=== PATIENT | male | born 1970 | race Caucasian/White ===

== ENCOUNTER 2021-06-28 10:06 | Outpatient (REF) | payer OTHER, SELFPAY | END 2021-06-28 10:07 | disposition home or self-care (01) | LOC: HO.BBR 10:06 | PROVIDERS: PCP Internal Medicine; Visit Provider Internal Medicine | DX: E83.111 Hemochromatosis due to repeated red blood cell transfusions (principal) | CPT/HCPCS: 85018; 99195 ==

== ENCOUNTER 2021-07-05 11:01 | Outpatient (REF) | payer OTHER, SELFPAY | END 2021-07-05 11:02 | disposition home or self-care (01) | LOC: HO.BBR 11:01 | PROVIDERS: Visit Provider Internal Medicine | DX: R79.89 Other specified abnormal findings of blood chemistry (principal) | CPT/HCPCS: 85018; 99195 ==

== ENCOUNTER 2021-07-22 11:17 | Outpatient (REF) | payer OTHER, SELFPAY | END 2021-07-22 11:18 | disposition home or self-care (01) | LOC: HO.BBR 11:17 | PROVIDERS: PCP Internal Medicine; Visit Provider Internal Medicine | DX: E83.19 Other disorders of iron metabolism (principal) | CPT/HCPCS: 85014; 85018; 99195 ==

== ENCOUNTER 2021-08-03 10:29 | Outpatient (REF) | payer OTHER, SELFPAY | END 2021-08-03 10:30 | disposition home or self-care (01) | LOC: HO.BBR 10:29 | PROVIDERS: PCP Internal Medicine; Visit Provider Internal Medicine | DX: R79.89 Other specified abnormal findings of blood chemistry (principal) | CPT/HCPCS: 85018; 99195 ==

== ENCOUNTER 2021-08-16 12:03 | Outpatient (REF) | payer OTHER, SELFPAY | END 2021-08-16 12:04 | disposition home or self-care (01) | LOC: HO.BBR 12:03 | PROVIDERS: Visit Provider Internal Medicine | DX: E83.19 Other disorders of iron metabolism (principal) | CPT/HCPCS: 85018; 99195 ==

== ENCOUNTER 2021-10-28 13:55 | Outpatient (REF) | payer OTHER, SELFPAY | END 2021-10-28 13:56 | disposition home or self-care (01) | LOC: HO.BBR 13:55 | PROVIDERS: Visit Provider Internal Medicine | DX: E83.111 Hemochromatosis due to repeated red blood cell transfusions (principal) | CPT/HCPCS: 85014; 85018; 99195 ==

== ENCOUNTER 2021-11-15 13:46 | Outpatient (REF) | payer OTHER, SELFPAY | END 2021-11-15 13:47 | disposition home or self-care (01) | LOC: HO.BBR 13:46 | PROVIDERS: Visit Provider Internal Medicine | DX: E83.19 Other disorders of iron metabolism (principal) | CPT/HCPCS: 85014; 85018; 99195 ==

== ENCOUNTER 2021-11-25 11:09 | Outpatient (REF) | payer OTHER, SELFPAY | END 2021-11-25 11:10 | disposition home or self-care (01) | LOC: HO.BBR 11:09 | PROVIDERS: Visit Provider Internal Medicine | DX: E83.19 Other disorders of iron metabolism (principal) | CPT/HCPCS: 85014; 85018; 99195 ==

== ENCOUNTER 2021-12-09 08:05 | Outpatient (REF) | payer OTHER, SELFPAY | END 2021-12-09 08:06 | disposition home or self-care (01) | LOC: HO.BBR 08:05 | PROVIDERS: Visit Provider Internal Medicine | DX: E83.19 Other disorders of iron metabolism (principal) | CPT/HCPCS: 85014; 85018; 99195 ==